=== PATIENT | female | born 1950 | race Caucasian/White ===

== ENCOUNTER → 2018-11-30 18:21 | Emergency (ER) | payer MEDICARE, MEDICAID ==
[~2018-11-30 18:21] MED LIST: Acetaminophen TAB* 325 MG PO ONE; Famotidine TAB* 20 MG PO ONE; methylPREDNISolone 125 MG* 2 ML VIAL IV ONE
--- NOTE | 2018-11-30 19:38 | ED ---
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 Pt reports she got stung by yellow jacket bees today on various different body parts including, right side of back, right finger, left forearm, left upper arm, right forearm, left breast. She states she began to feel tingling in her lips and tongue. Pt notes she took her epi pen, that was , at around 17:00 today. She also notes she took 50 mg of Benadryl that was also . She currently reports the bee sting sites are throbbing in pain. Pt states she was first given an epi pen when a yellow jacket bee stung her and had anaphylaxis. She notes she has had about 8 epi pens until now but has never needed to use them until today. Pt is on blood thinners for PE and DVT. - History of Current Complaint Chief Complaint: EDAllergicReaction Time Seen by Provider: 11/30/18 19:01 Stated Complaint: ALLERGIC REACTION PER EMS Hx Obtained From: Patient Onset/Duration: Started Hours Ago, Still Present Timing: Lasting Hours Current Severity: Moderate Pain Intensity: 4 Pain Scale Used: 0-10 Numeric Skin Location: Other: - right sided back, right ring finger, left forearm, left upper arm, right forearm, left breast Character: Pain, Redness Alleviating Symptom(s): Nothing Related History: Insect Bite/Sting, Other: - hx of allergies to bee stings - Allergy/Home Medications Allergies/Adverse Reactions: Allergies Allergy/AdvReac Type Severity Reaction Status Date / Time MS Codeine Allergy Severe Shortness Verified 11/30/18 21:23 [From Phenaphen W/Codeine] of Breath MS Aspirin [Aspirin] Allergy Mild Vomiting Verified 11/30/18 21:23 MS Latex [Latex] Allergy Mild Rash Verified 11/30/18 21:23 metal Allergy Mild Rash Uncoded 11/30/18 21:23 PMH/Surg Hx/FS Hx/Imm Hx Endocrine/Hematology History: Reports: Hx Anticoagulant Therapy, Hx Blood Disorders - "BLOOD CLOTS TOO MUCH" Cardiovascular History: Reports: Hx Deep Vein Thrombosis Respiratory History: Reports: Hx Chronic Bronchitis, Hx Pulmonary Embolism GI History: Reports: Hx Hiatal Hernia, Hx Ulcer History: Reports: Other Problems/Disorders - INCONTINENCE Musculoskeletal History: Reports: Other Musculoskeletal History - NECK PAIN / FIBROMYALGIA Sensory History: Reports: Hx Cataracts, Hx Contacts or Glasses, Hx Hearing Problem Opthamlomology History: Reports: Hx Cataracts, Hx Contacts or Glasses Neurological History: Reports: Hx Headaches - Surgical History Surgery Procedure, Year, and Place: TONSILLECTOMY 1957, D&C 1968, TUBAL 1985, [place]. MYRINGOTOMY 1979, ORA;L SUREGERY 1971, ULNAR RELOCATION 2008 - Immunization History Immunizations Up to Date: Yes Infectious Disease History: No Infectious Disease History: Denies: Traveled Outside the [place] in Last 30 Days - Family History Family History: Father with allergies to bee sting - Social History Alcohol Use: None Substance Use Type: Reports: None Smoking Status (MU): Never Smoked Tobacco Review of Systems Negative: Fever ENT: Other - POSITIVE: tingling at lips and tongue Skin: Other - POSITIVE: bee stings on right back, right ring finger, left forearm, left upper arm, right forearm, left breast All Other Systems Reviewed And Are Negative: Yes Physical Exam - Summary Physical Exam Summary: Constitutional: Well-developed, Well-nourished, Alert. (-) Distressed Skin: Warm, Dry. Welts to her right back, right ring finger, left forearm, left upper arm, right forearm, left breast. HENT: Normocephalic; Atraumatic. No stridor. No lip or tongue swelling Eyes: Conjunctiva normal Neck: Musculoskeletal ROM normal neck. (-) JVD, (-) Stridor, (-) Nuchal rigidity Cardio: Rhythm regular, rate normal, Heart sounds normal; Intact distal pulses; Radial pulses are 2+ and symmetric. (-) Murmur Pulmonary/Chest wall: Effort normal. (-) Respiratory distress, (-) Wheezes, (-) Rales Abd: Soft, (-) tenderness, (-) Distension, (-) Guarding, (-) Rebound Musculoskeletal: (-) Edema Lymph: (-) Cervical adenopathy Neuro: Alert, Oriented x3 Psych: Mood and affect Normal Triage Information Reviewed: Yes Vital Signs On Initial Exam: Initial Vitals Temp Pulse Resp BP Pulse Ox 97.2 F 86 20 163/67 94 11/30/18 18:47 11/30/18 18:47 11/30/18 18:47 11/30/18 18:47 11/30/18 18:47 Vital Signs Reviewed: Yes Diagnostics - Vital Signs Vital Signs Temp Pulse Resp BP Pulse Ox 11/30/18 19:21 84 17 145/80 93 11/30/18 19:01 85 24 95 11/30/18 18:53 86 17 163/67 93 11/30/18 18:48 84 94 11/30/18 18:47 97.2 F 86 20 163/67 94 - Laboratory Lab Statement: Any lab studies that have been ordered have been reviewed, and results considered in the medical decision making process. Re-Evaluation - Re-Evaluation First Eval Re-Evaluation Time: 21:23 Change: Improved Comment: Pt is resting. No signs of rebound anaphylaxis. Therefore pt will be discharged home. Course/Dx - Course Course Of Treatment: 68 y/o F p/w allergic reaction arond 17:30. Allergic reaction. s/p epinephrine. solumedrol, benadryl, zantac. Obs for 4 hours for biphasic reaction - Diagnoses Provider Diagnoses: Allergic reaction Discharge - Sign-Out/Discharge Documenting (check all that apply): Patient Departure - Discharge home Patient Received Moderate/Deep Sedation with Procedure: No - Discharge Plan Condition: Stable Disposition: HOME Prescriptions: EPINEPHrine [Epipen] 0.3 mg IJ ONCE PRN #1 auto.[email or web address] PRN Reason: Allergy Symptoms Patient Education Materials: Anaphylaxis (ED), General Allergic Reaction (ED) Referrals: Sharif Carr MD [Primary Care Provider] - Additional Instructions: Epi pen to go Carry an EPI-PEN (or similar device) WITH YOU AT ALL TIMES. You should keep one on your person at ALL TIMES. Keep one in your wallet, purse, or pocket, one at home, one at work, and one in your car. If you feel symptoms of another allergic reaction coming on- use the EPI-PEN IMMEDIATELY and then call 911. DO NOT WAIT TO INJECT YOURSELF IF YOU HAVE SYMPTOMS- THE DELAY COULD BE FATAL. IF YOU HAVE ANY DOUBT, it is better to inject yourself rather than wait. If you still have symptoms 5 minutes after giving yourself an EPI-PEN, give yourself a second epi-pen injection. Make sure to check the expiration dates on your epi- pen and refill them BEFORE they . - Billing Disposition and Condition Condition: STABLE Disposition: Home - Attestation Statements Document Initiated by Sami: Yes Documenting Scribe: Katia Ventura Provider For Whom Sami is Documenting (Include Credential): Adam Talavera MD Scribe Attestation: Katia Norton, scribed for Adam Talavera MD on 11/30/18 at 2222. Scribe Documentation Reviewed: Yes Provider Attestation: The documentation as recorded by the marcelloibKatia elliott accurately reflects the service I personally performed and the decisions made by me, Adam Talavera MD Status of Scribe Document: Viewed
[2018-11-30 21:45] VITALS: BP 140/78
== END | disposition home or self-care (01) ==
LOC: ED 18:21
DX: T63.441A Toxic effect of venom of bees, accidental (unintentional), initial encounter (principal); Y92.9 Unspecified place or not applicable; Z79.01 Long term (current) use of anticoagulants; Z86.718 Personal history of other venous thrombosis and embolism; Z88.6 Allergy status to analgesic agent
CPT/HCPCS: 96374; 99283; A9270-GY; J2930

== ENCOUNTER 2023-07-27 22:40 | Observation (INO) ==
[2023-07-27 23:28] LABS: ABS Basophils 0.1 10^3/uL (0.0-0.1); ABS Eosinophils 0.1 10^3/uL (0.0-0.5); ABS Lymphocytes 4.8 10^3/uL (1.0-4.8); ABS Monocytes 0.7 10^3/uL (0.0-0.9); ABS Neutrophils 5.9 10^3/uL (1.5-7.6); ABS Nucleated RBC 0.01 10^3/ul; Hematocrit 44.2 % (35-45); Hemoglobin 14.8 g/dL (11.5-14.3); Lymphocyte % 41.7 %; Mean Corpuscular Hemoglobin 32.3 pg (27-33); Mean Corpuscular Hgb Conc 33.5 g/dL (31-36); Mean Corpuscular Volume 96.6 fL (80-97); Mean Platelet Volume 8.7 fL (7.5-11.2); Nucleated Red Blood Cells % 0.1 %/100WBC (0.0-0.8); Platelet Count 272 10^3/uL (150-450); Red Blood Count 4.58 10^6/uL (3.63-4.92); Red Cell Distribution Width 13.2 % (12-17); White Blood Count 11.6 10^3/uL (3.8-11.8)
[2023-07-27 23:36] LABS: Activated Partial Thrombo Time 38.6 seconds (26.0-38.0); INR 2.2 (0.83-1.13)
[2023-07-28 00:09] LABS: Albumin 4.8 g/dL (3.2-5.2); Albumin/Globulin Ratio 1.8 (1-3); C Reactive Protein 5.68 mg/L (<8.01); Calcium 10.4 mg/dL (8.6-10.3); Creatinine, Serum 0.94 mg/dL (0.51-0.95); Globulin 2.7 g/dL (2-4); Potassium 4.7 mmol/L (3.5-5.0); Total Bilirubin 0.4 mg/dL (0.2-1.0); Total Protein 7.5 g/dL (6.4-8.9); eGFR CKD-EPI 63.3 (>60)
[2023-07-28 01:03] LABS: High Sensitivity Troponin 1 Hr 5 pg/mL (<15)
[2023-07-28] MEDS ORDERED: Iodixanol (CONTRAST) 320 MG/ML 100 ML SDV IV ONE (01:37)
[2023-07-28] MEDS: Ondansetron 4 mg VIAL 2 MG/ML 2 ml VIAL IV ONE (03:11)
[2023-07-28] MEDS: methylPREDNISolone SOD SUCC 40 mg/ml 1 ml VIAL IV ONE (03:13)
[2023-07-28] MEDS: Acetaminophen IV 1 GM/100ML 1,000 MG/100 ML BAG IV ONE (03:14)
[2023-07-28 03:55] LABS: Urine Appearance Turbid; Urine Bilirubin Negative (Negative); Urine Blood Trace (Negative); Urine Color Light-Yellow; Urine Glucose Negative (Negative); Urine Ketones Negative (Negative); Urine Nitrite 2+ (Negative); Urine Protein Negative (Negative); Urine Specific Gravity 1.021 (1.002-1.030); Urine Urobilinogen Negative (Negative)
[2023-07-28 04:04] LABS: Urine Bacteria 1+ /HPF (Absent); Urine Red Blood Cell 3+(>10/hpf) /HPF (0-Trace); Urine Squamous Epithelial Cell Present /HPF (Absent); Urine White Blood Cell 1+(6-10/hpf) /HPF (0-Trace)
[2023-07-28] MEDS: Iodixanol (CONTRAST) 320 MG/ML 100 ML SDV IV ONE (05:14)
[2023-07-28] MEDS: cefTRIAXone 1 gm/50 mL D5W 1 GM/50 ML BAG IV ONE ×2 (06:14→08:49)
[2023-07-28] MEDS ORDERED: Al Hydrox/Mg Hydrox/Simet LIQ 30 ML UDC PO PRN (07:35)
[2023-07-28] MEDS ORDERED: Senna TAB 8.6 mg TAB PO PRN (07:35)
[2023-07-28] MEDS ORDERED: Polyethylene Glycol 3350 17 GM PACKET PO PRN (07:35)
[2023-07-28] MEDS ORDERED: Ondansetron 4 mg VIAL 2 MG/ML 2 ml VIAL IV PRN (07:35)
[2023-07-28] MEDS: Enoxaparin 40 MG/0.4 ML SYR SUBCUT SCH (08:49)
[2023-07-28] MEDS: NS 0.9% 1000 ml BAG 1,000 ML IV ONE (08:50)
[2023-07-28] MEDS ORDERED: Albuterol HFA INHALER 8 gm MDI INH PRN (10:10)
[2023-07-28] MEDS: Azelastine 0.05% (OPHTH)(NF) 6 ML BTL BOTH EYES SCH (11:11)
[2023-07-28] MEDS: Polyethylene Glycol 3350 17 GM PACKET PO SCH (11:12)
[2023-07-28] MEDS: Fluticasone NASAL SPRAY 50MCG 16 gm SPRAY BTL INTRANASAL SCH (11:13)
[2023-07-28 11:55] LABS: INR 2.72 (0.83-1.13)
[2023-07-28] MEDS: Lactated Ringers 1000 ml BAG 1,000 ML IV ONE (15:41)
[2023-07-28 15:56] LABS: Urine Appearance No Cx Clear (Clear); Urine Bilirubin No Culture Negative (Negative); Urine Blood No Culture 2+ (Negative); Urine Color No Culture Colorless; Urine Glucose No Culture Negative (Negative); Urine Ketones No Culture Negative (Negative); Urine Leukocytes No Culture 75 (1+) Leu/uL (Negative); Urine Nitrite No Culture Negative (Negative); Urine Protein No Culture Trace (Negative); Urine Specific Gravity No Cx 1.015 (1.002-1.030); Urine Urobilinogen No Cx Negative (Negative)
[2023-07-28 16:01] LABS: Ur Squamous Epithelial No Cx Present /HPF (Absent); Urine Bacteria No Culture Absent /HPF (Absent); Urine Red Blood Cell No Cult 3+(>10/hpf) /HPF (0-Trace); Urine White Blood Cell No Cult 2+(11-20/hpf) /HPF (0-Trace)
[2023-07-28] MEDS: Lactated Ringers 1000 ml BAG 1,000 ML IV SCH (17:09)
[2023-07-28] MEDS: Warfarin per PHARMACY **NOTE FOLLOW UP SCH (17:12)
[2023-07-28] MEDS ORDERED: Polyethyl Glycol/Propylene Gly OPHTH.SOLN BOTH EYES SCH (21:00)
[2023-07-28] MEDS: Senna TAB 8.6 mg TAB PO SCH (21:08)
[2023-07-29] MEDS: Polyethyl Glycol/Propylene Gly OPHTH.SOLN BOTH EYES PRN (00:32)
[2023-07-29 06:18] LABS: INR 3.2 (0.83-1.13)
[2023-07-29 08:19] LABS: Calcium 9.1 mg/dL (8.6-10.3); Creatinine, Serum 0.8 mg/dL (0.51-0.95); Potassium 4.2 mmol/L (3.5-5.0); eGFR CKD-EPI 76.8 (>60)
[2023-07-29] MEDS: cefTRIAXone 1 gm/50 mL D5W 1 GM/50 ML BAG IV SCH (09:41)
[2023-07-29 10:12] VITALS: BP 135/58
[2023-07-29] MEDS ORDERED: Warfarin - No Order Today **NOTE FOLLOW UP ONE (17:00)
== END 2023-07-29 12:00 | disposition home or self-care (01) ==
LOC: ED 22:40 → EDHOLD 22:40 → MED 07-28 09:22
PROVIDERS: ADMIT Internal Medicine; ATTEND Internal Medicine